=== PATIENT | male | born 1965 | race Caucasian/White ===

== ENCOUNTER 2023-08-02 00:18 | Emergency (ER) | payer OTHER ==
[~2023-08-02] VITALS: Ht 165.1 cm; Wt 59.0 kg
[2023-08-02] MEDS: HALOPERIDOL INJ 5 MG/ML VIAL IM SCH (01:11)
[2023-08-02] MEDS: LORAZEPAM 2 MG/ML 1 ML VIAL IM ONE (01:11)
[2023-08-02] MEDS: DiphenhydrAMINE HCL 50 MG/ML VIAL IM ONE (01:11)
[2023-08-02] MEDS: HALOPERIDOL INJ 5 MG/ML VIAL ONE (01:12)
[2023-08-02] MEDS: DiphenhydrAMINE HCL 50 MG/ML VIAL ONE (01:12)
[2023-08-02] MEDS: LORAZEPAM 2 MG/ML 1 ML VIAL ONE (01:12)
[2023-08-02 01:24] LABS: BASOPHILS # (AUTO) 0.05 K/uL (0.00-0.20); BASOPHILS % (AUTO) 0.3 % (0.0-5.0); EOSINOPHILS # (AUTO) 0.09 K/uL (0.00-0.70); EOSINOPHILS % (AUTO) 0.6 % (0.0-8.0); HEMATOCRIT 40.6 % (42-54); IMMATURE GRANULOCYTE ABSOLUTE 0.09 K/uL (0-1); LYMPHOCYTES # (AUTO) 1.4 K/uL (1.0-4.8); LYMPHOCYTES % (AUTO) 9.7 % (21.0-51.0); MEAN CORPUSCULAR HEMOGLOBIN 31.8 pg (27.0-33.0); MEAN CORPUSCULAR HGB CONC 33.5 g/dL (32.0-36.0); MEAN CORPUSCULAR VOLUME 94.9 fL (79-99); MONOCYTES # (AUTO) 0.9 K/uL (0.1-1.0); MONOCYTES % (AUTO) 6.3 % (3.0-13.0); NEUTROPHILS # (AUTO) 11.8 K/uL (1.8-7.7); NEUTROPHILS % (AUTO) 82.5 % (40.0-77.0); PLATELET COUNT (AUTO) 347 K/uL (130-400); RED BLOOD CELL COUNT(AUTO) 4.28 MIL/uL (4.50-6.20); RED CELL DISTRIBUTION WIDTH 12.8 % (11.0-15.5); WHITE BLOOD COUNT (AUTO) 14.3 K/uL (4.8-10.8)
[2023-08-02 01:29] LABS: CARBON DIOXIDE 30 mmol/L (21-32); CHLORIDE 106 mmol/L (101-111); GLOMERULAR FILTR. RATE CALC 91 mL/min (>90); GLUCOSE,RANDOM 101 mg/dL (70-105); POTASSIUM 5.6 mmol/L (3.5-5.1); SODIUM SERUM 143 mmol/L (136-145); UREA NITROGEN, BLOOD 24 mg/dL (7-18)
[2023-08-02 01:33] LABS: ALANINE AMINOTRANSFERASE 18 U/L (12-78); ALBUMIN 4.3 g/dL (3.5-5.0); AMMONIA 36 umol/L (11-32); ASPARTATE AMINOTRANSFERASE 18 U/L (10-37); BILIRUBIN,TOTAL 0.3 mg/dL (0.2-1.0); SALICYLATE < 2.8 mg/dL (2.8-20.0); TOTAL PROTEIN, SERUM 7.5 g/dL (6.0-8.3)
[2023-08-02 01:34] LABS: ACETAMINOPHEN < 1 mcg/mL (10-29); ALCOHOL, BLOOD < 3 mg/dL (0-10)
[2023-08-02] MEDS: 0.9%NACL 1000ML 2,000 ML IV ONE (03:16)
[2023-08-02 03:19] LABS: WBC MORPHOLOGY CONSISTENT W/DIFF
[2023-08-02 04:28] LABS: APPEARANCE,URINE CLEAR (CLEAR); BILIRUBIN,URINE NEGATIVE (NEGATIVE); COLOR,URINE LIGHT-YELLOW (YELLOW); GLUCOSE, URINE (UA) NEGATIVE (NEGATIVE); KETONES,URINE NEGATIVE (NEGATIVE); LEUKOCYTE ESTERASE ,URINE NEGATIVE Leu/uL (NEGATIVE); NITRATE,URINE NEGATIVE (NEGATIVE); PROTEIN,URINE NEGATIVE (NEGATIVE); UROBILINOGEN,URINE 0.2 mg/dL (0.2-1.0)
[2023-08-02 04:34] LABS: AMPHET/METH SCREEN,URINE NEGATIVE (NEGATIVE); BARBITURATE SCREEN, URINE NEGATIVE (NEGATIVE); BENZODIAZEPINES SCREEN,URINE NEGATIVE (NEGATIVE); CANNABINOID SCREEN,URINE NEGATIVE (NEGATIVE); COCAINE SCREEN,URINE NEGATIVE (NEGATIVE); OPIATE SCREEN,URINE NEGATIVE (NEGATIVE); PHENCYCLIDINE SCREEN,URINE NEGATIVE (NEGATIVE)
[2023-08-02 04:39] LABS: BACTERIA,URINE RARE /HPF (None Seen); MUCUS,URINE RARE LPF (None Seen); WBC,URINE 0-1 /HPF (0-1)
[2023-08-02 06:42] LABS: BASOPHILS # (AUTO) 0.02 K/uL (0.00-0.20); BASOPHILS % (AUTO) 0.2 % (0.0-5.0); EOSINOPHILS # (AUTO) 0.03 K/uL (0.00-0.70); EOSINOPHILS % (AUTO) 0.3 % (0.0-8.0); HEMATOCRIT 35.9 % (42-54); IMMATURE GRANULOCYTE ABSOLUTE 0.06 K/uL (0-1); LYMPHOCYTES # (AUTO) 0.8 K/uL (1.0-4.8); LYMPHOCYTES % (AUTO) 8.8 % (21.0-51.0); MEAN CORPUSCULAR HEMOGLOBIN 31.8 pg (27.0-33.0); MEAN CORPUSCULAR HGB CONC 32.9 g/dL (32.0-36.0); MEAN CORPUSCULAR VOLUME 96.8 fL (79-99); MONOCYTES # (AUTO) 0.5 K/uL (0.1-1.0); MONOCYTES % (AUTO) 5.8 % (3.0-13.0); NEUTROPHILS # (AUTO) 7.2 K/uL (1.8-7.7); NEUTROPHILS % (AUTO) 84.2 % (40.0-77.0); PLATELET COUNT (AUTO) 253 K/uL (130-400); RED BLOOD CELL COUNT(AUTO) 3.71 MIL/uL (4.50-6.20); RED CELL DISTRIBUTION WIDTH 12.7 % (11.0-15.5); WHITE BLOOD COUNT (AUTO) 8.6 K/uL (4.8-10.8)
[2023-08-02 08:18] LABS: ALANINE AMINOTRANSFERASE 18 U/L (12-78); ALBUMIN 3.5 g/dL (3.5-5.0); ASPARTATE AMINOTRANSFERASE 17 U/L (10-37); BILIRUBIN,TOTAL 0.2 mg/dL (0.2-1.0); CARBON DIOXIDE 27 mmol/L (21-32); CHLORIDE 108 mmol/L (101-111); CREATINE KINASE, TOTAL 208 U/L (21-232); CREATININE 0.9 mg/dL (0.5-1.3); GLOMERULAR FILTR. RATE CALC 103 mL/min (>90); GLUCOSE,RANDOM 98 mg/dL (70-105); POTASSIUM 4.8 mmol/L (3.5-5.1); SODIUM SERUM 143 mmol/L (136-145); TOTAL PROTEIN, SERUM 6.2 g/dL (6.0-8.3); UREA NITROGEN, BLOOD 11 mg/dL (7-18)
[2023-08-02 08:55] LABS: AMMONIA < 10 umol/L (11-32)
[2023-08-04 11:30] VITALS: BP 109/63; PULSE 84; RESP 18; O2SAT 97
== END 2023-08-04 13:47 ==
LOC: EDBD 00:18 → EDH 00:18
DX: R45.851 Suicidal ideations (principal); F99 Mental disorder, not otherwise specified
CPT/HCPCS: 99285; 96360; 96361; 82550 ×2; 80305; 82140 ×2; 85025 ×2; 82948; 36415; 81001; 96372 ×2; 80053 ×2; G0481; J1200; J7030; J1630; J2060